=== PATIENT | male | born 1935 | race Caucasian/White ===

== ENCOUNTER 2019-07-16 19:28 | Inpatient (IN) | payer MEDICARE, OTHER, SELFPAY ==
[2019-07-16] VITALS (8 sets, daily range): BP systolic 92–152; BP diastolic 46–56; PULSE 57–78; RESP 17–19; TEMP 37.7–39.4; O2SAT 93–95; BMI 25.8
[2019-07-16] MEDS: Ibuprofen 400 MG Tablet 800 MG PO (20:26)
--- NOTE | 2019-07-16 20:46 | RAD_ITS ---
STUDY: X-RAY CHEST REASON FOR EXAM: Male, 84 years old. fever and cough since wednesday TECHNIQUE: Single AP portable view of the chest. COMPARISON: FINDINGS: The lungs are clear and expanded. Elevated right hemidiaphragm. Normal size heart. Normal mediastinum and leda. Normal visualized pulmonary arteries. Normal visualized aortic arch and descending thoracic aorta. Normal visualized thoracic spine. Normal visualized ribs, clavicles, and shoulders. There is no demonstrated abnormality of the visualized soft tissue structures of the upper abdomen. RAD/Chest 1 View (Portable) IMPRESSION: No active disease. Elevated right hemidiaphragm. Electronically Signed: Alexis Huang MD at 21:25 EDT Tel , Service support ,
[2019-07-16 20:48] LABS: Absolute Lymphocyte Count 0.69 X10^3/uL (0.83-4.51); Absolute Neutrophil Count 5.9 X10^3/uL (2.0-7.7); Basophil# 0.07 X10^3/uL; Basophil% 0.9 % (0-1); Eosinophil# 0.01 X10^3/uL; Eosinophils% 0.1 % (0-5); Hematocrit 38.9 % (40-54); Lymphocyte # 0.69 X10^3/ul (4.0); Lymphocyte % 9.1 % (19-41); Mean Corp Hgb Conc 33.4 g/dL (32-36); Mean Corpuscular Hgb 29.1 pg (27.0-32.0); Mean Corpuscular Volume 87.2 fL (80-94); Monocyte% 11.9 % (0-10); NRBC Flagged by Analyzer 0 % (0-5); Neutrophil # 5.85 X10^3/uL (2.7-7.7); Neutrophil % 77.5 % (47-70); Platelet Count 291 K/mm3 (150-450); RBC Distribution Width CV 13.7 % (11.6-14.6); RBC Distribution Width SD 44.2 fl (35.1-43.9); Red Blood Count 4.46 M/mm3 (4.6-6.2); White Blood Count 7.6 K/mm3 (4.4-11.0)
--- NOTE | 2019-07-16 20:51 | ED.DCSUM_ITS ---
History of Present Illness Chief Complaint: Shortness of Breath Informant: Patient, Significant Other Narrative: Patient states that on Wednesday he developed a dry cough. Did not really have any other symptoms until yesterday late when he developed a fever and some mild shortness of breath today. He denies any headache. He notes generalized myalgias. He states his nose chronically has rhinorrhea but that is unchanged. He notes some nausea and decreased appetite. He notes his urine is darker than normal. No rashes. No sputum production. Patient has had some diarrhea. 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 Past Medical History - Allergies and Home Meds Allergies/Adverse Reactions: Allergies Iodinated Contrast Media [CONTRASTS] Allergy (Verified 07/16/19 19:29) Rash Primary Care Physician: Ran Bird MD [Primary Care Provider] - Smoking Status: Never smoker - Family History Maternal Family History: Reports: Diabetes, High Cholesterol, Heart Disease, Hypertension Paternal Family History: Reports: Diabetes, High Cholesterol, Heart Disease, Hypertension Review of Systems General: Reports: Chills, Fever, Malaise. Denies: Sweats Eyes: Denies: Visual changes - bilaterally, Diplopia ENT: Denies: Rhinorrhea, Sore throat Cardiovascular: Denies: Chest pain, Palpitations Respiratory: Reports: Dyspnea, Cough. Denies: Dyspnea on exertion Gastrointestinal: Denies: Abdominal pain, Nausea, Vomiting, Diarrhea, Melena, Hematochezia Genitourinary: Denies: Dysuria, Hematuria, Frequency Musculoskeletal: Reports: Myalgias. Denies: Back pain, Extremity Pain Skin: Denies: Rash, Wounds Neurological: Denies: Headache, Weakness, Numbness Physical Exam Vital Signs/Narrative: Vital Signs Temp Pulse Resp BP Pulse Ox 07/16/19 20:28 102.9 F H 73 19 H 111/55 L 94 07/16/19 19:30 102.9 F H 69 17 152/56 H 94 Inital Vital Signs reviewed: Yes General: Well nourished, Well developed, No Acute Distress Head: Normocephalic, Atraumatic Eyes: Perrl, EOMI ENT: Moist mucous membranes, No rhinorrhea Neck: Supple, Nontender Cardiovascular: Regular rate, Regular rhythm, No murmurs Respiratory: No distress, CTA bilaterally, Chest nontender Abdomen: Soft, Nontender, Nondistended, Normal bowel sounds Back: Nontender, Normal Inspection Extremities: Nontender, No edema Skin: Normal color, No rash Neurological: Alert, Oriented x3, Cranial nerves II-XII grossly intact, Normal Strength, Normal Sensation Psychological: Normal affect, Normal Mood Diagnostic/Tx/Re-eval - Medical Decision Making Basic labs show a normal white blood cell count with a shift. Creatinine is 1.72. Lactic acid is normal. Coags normal. Chest x-ray negative. Influenza swab was negative therefore respiratory panel was ordered. As his fever came down his blood pressure has been soft. We have had numerous blood pressure readings below the mean of 65 but also some above it. Because of the labile pressures we will plan to put the patient in the ICU for close observation. We do have concerns for COVID. Because he is asplenic without a clear source for his fever we administered vancomycin and Rocephin. Cultures were obtained. He also sent stool specimen because of the diarrhea. - Critical Care Time Critical care time (excluding procedures): 30-74 minutes - 35 min ED Disposition - Plan for ED Patient: Disposition: Acute Care Hospital [facility] Diagnosis: Diarrhea, Sepsis, Sepsis associated hypotension, Acute viral syndrome Referrals: Ran Bird MD [Primary Care Provider] -
[2019-07-16 21:02] LABS: International Normalized Ratio 1.2; Prothrombin Time (Protime)PT. 14.5 SECONDS (11.7-14.9)
[2019-07-16] MEDS: Acetaminophen 500 MG Tablet 1000 MG PO (21:02)
[2019-07-16] MEDS: 0.9% Normal Saline 1,000 ML 999 ML IV ×2 (21:02→22:20)
[2019-07-16 21:03] LABS: Partial Thromboplast Time 28.1 Seconds (24.1-36.2)
[2019-07-16] MEDS: 0.9% Normal Saline 1,000 ML 150 ML IV (21:03)
[2019-07-16 21:07] LABS: BUN 34 mg/dL (7-18); Creatinine, Serum 1.72 mg/dL (0.70-1.30); Estimated Creatinine Clearance 33.11 ml/min; Glucose 104 mg/dL (74-106)
[2019-07-16 21:08] LABS: ALB/GLOB Ratio 1.1 RATIO (0.9-2.4); AST(SGOT) 21 U/L (15-37); Alanine Aminotransfer ALT/SGPT 22 U/L (16-61); Albumin, Serum 3.6 g/dL (3.2-5.0); Alkaline Phosphatase 44 U/L (45-117); Anion Gap 9 (5-15); BUN/Creat Ratio 19.8 RATIO (10-20); Calcium,Total 8.3 mg/dL (8.5-10.1); Chloride 100 mmol/L (98-107); EST Glomerular Filtration Rate 41 mL/min (>60); Est Glom Filt Rate - Afr Amer 49 mL/min (>60); Globulin 3.3 g/dL (2.2-4.2); Protein, Total 6.9 g/dL (6.4-8.2); Sodium Level 134 mmol/L (136-145)
[2019-07-16 21:19] LABS: Lactic Acid 0.9 mmol/L (0.4-1.9)
--- NOTE | 2019-07-16 21:43 | HP.PCM_ITS ---
Problem List (1) Sepsis Status: Acute Qualifiers: Sepsis type: sepsis due to unspecified organism Sepsis acute organ dysfunction status: unspecified Qualified Code(s): A41.9 - Sepsis, unspecified organism (2) Sepsis associated hypotension Status: Acute (3) Acute viral syndrome Status: Acute (4) HTN (hypertension) Status: Chronic Qualifiers: Hypertension type: essential hypertension Qualified Code(s): I10 - Essential (primary) hypertension (5) HLD (hyperlipidemia) Status: Chronic Qualifiers: Hyperlipidemia type: unspecified Qualified Code(s): E78.5 - Hyperlipidemia, unspecified (6) Former tobacco use Status: Chronic (7) History of kidney cancer Status: Chronic History of Present Illness Date of Admission: 07/16/19 Chief Complaint: Dyspnea, fever x 3 days The patient is a 84 y/o M w/ PMHx: Hx Metastatic Renal CA s/p partial pancreatomy/bowel resection/L nephrectomy/splenectomy, HTN, HLD, CKD stage III (baseline 1.3-1.5) who presents to the [facility] ED on 07/16/19 with history of 3 days of worsening mild dry cough, dyspnea, worse with exertion with onset fever x 24 hours with myalgia with no headache, congestion or rhinorrhea prompting ED presentation with noted recent anorexia with poor oral intake with loose stools and mild abdominal cramping starting on day of ED presentation concurrently. Patient denies any recent travel and no specific exposure to COVID-19 patient.; however, patient and who is present and has mask in place note that they were both recently at several volleyball tournaments in the region including [place], [place] and [place]. Work-up in the ED included T 102.9, heart rate 69, BP 152/59, respiratory rate 19, 94% on room air, CBC with WC 7.6, hemoglobin 13, platelet 291 without significant left shift, unremarkable coags, CMP with sodium 134, BUN/creatinine 34/1.72, lactic acid 0.9, troponin less than 0.015, chest x-ray with no acute cardiopulmonary findings with only noted elevated right hemidiaphragm, blood culture x2 pending per ED, negative rapid in fluenza panel. In the ED patient ministered normal saline, Tylenol, ibuprofen. Pending respiratory viral panel per ED physician. Given asplenic status per discussion with ED physician and low BPs, planned administration rocephin, vanc and continued BP monitoring and if improved planned PCU transition but if worsening hypotension would transition to the ICU. Past Medical History Past Medical History (Chronic Problems): Chronic Problems HTN (hypertension) (Chronic) HLD (hyperlipidemia) (Chronic) Former tobacco use (Chronic) History of kidney cancer (Chronic) Allergies Iodinated Contrast Media [CONTRASTS] Allergy (Verified 07/16/19 19:29) Rash Home Medications: Ambulatory Orders Medication Instructions Recorded Aspirin E.C. 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 Psychiatric History: No pertinent psych hx Lives: Spouse/ Significant Other Smoking Status: Former smoker - Patient quit cigarette tobacco usage in 1979 with prior this 1.5 to 2 pack/day since he was a teenager. Tobacco Use: Non-smoker Alcohol: None Drugs: None - *Family History Maternal History Items: Diabetes, High Cholesterol, Heart Disease, Hypertension Paternal History Items: Diabetes, High Cholesterol, Heart Disease, Hypertension Review of Systems Constitutional: Reports: Anorexia, Fever, Malaise, Weakness, Fatigue. Denies: Chills, Weight Change HEENT: Denies: Head Aches, Sinus Congestion, Sinus Drainage Cardiovascular: Denies: Chest Pain, Palpitations Respiratory: Reports: Cough, Shortness of Breath, Shortness of breath at rest, Shortness of breath upon exertion. Denies: Sputum production, Wheezing Gastrointestinal: Reports: Abdominal Pain, Diarrhea. Denies: Nausea, Vomiting Genitourinary: Denies: Dysuria Musculoskeletal: Reports: Joint Pain. Denies: Joint Tenderness Skin: Denies: Rash, Wounds Neurological: Denies: Numbness, Tingling, Focal weakness Psychiatric: Denies: Anxiety, Depression, Homicidal Ideations, Suicidal Ideations Hematologic/ Lymphatic: Denies: Easy Bruising, Easy Bleeding VTE Information - Inpt Only VTE Present on Admission: No VTE Mechan Device Prophylaxis: SCD's VTE Pharm Prophylaxis ordered?: Yes Patient Problems: Active and Suspected Problems Sepsis (Acute) Sepsis associated hypotension (Acute) Acute viral syndrome (Acute) Subjective: Seated upright in ED bed, fatigued and ill-appearing. Objective: Physical Examination: General: awake, alert, oriented x 3 and cooperative, seated upright in the ED bed, fatigued and ill-appearing. Skin: normal color, turgor, no icterus, cyanosis. HEENT: AT/NC, EOMI, PERRLA, dry MM, no carotid bruits or JVD noted. Lungs: Diminished breath sounds bilaterally, greater right base, mildly increased respiratory rate, no obvious significant distress, no rales, ronchi or wheezing. Heart: Regular rate and rhythm; no gallop, rub audible. Abdomen: soft, NTTP, ND, hyperactive BS, no HSM. Extremities: no cyanosis, clubbing, or edema. Neurological: patient awake, alert, oriented x 3; cognitive function remains baseline intact; pupils equally reactive to light and accomodation; cranial nerves II-XII grossly normal, moving all 4 extremities, no focal deficits, strength moderately global decrease secondary to acute presentation. Psychiatric: affect appears n fatigued, ill-appearing, no acute evidence of depressive or anxiety feelings. - Physical Exam Vitals/I&O's: Vital Signs Temp Pulse Resp BP Pulse Ox 102.8 F H 73 19 H 111/55 L 94 07/16/19 20:37 07/16/19 20:28 07/16/19 20:28 07/16/19 20:28 07/16/19 20:28 Oxygen Delivery Method Room Air Weight: 175 lb Body Mass Index (BMI) 25.8 Intake and Output for Last 24 Hours 07/14/19 07/15/19 07/16/19 23:59 23:59 23:59 Intake Total 22.5 / 22.5 Balance 22.5 / 22.5 Microbiology Past 72 Hours 07/16/19 20:45 Mucosa - Nose Influenza Types A,B Direct FA (FUAD) - Final Laboratory Results 07/16/19 20:20: Sodium 134 L, Potassium 4.0, Chloride 100, Carbon Dioxide 25.0, Anion Gap 9, BUN 34 H, Creatinine 1.72 H, Estim Creat Clear Calc 33.11, Est GFR (MDRD) Af Amer 49 L, Est GFR (MDRD) Non-Af 41 L, BUN/Creatinine Ratio 19.8, Glucose 104, Calcium 8.3 L, Total Bilirubin 0.50, AST 21, ALT 22, Alkaline Phosphatase 44 L, Troponin I < 0.015, Total Protein 6.9, Albumin 3.6, Globulin 3.3, Albumin/Globulin Ratio 1.1 07/16/19 20:20: WBC 7.6, RBC 4.46 L, Hgb 13.0, Hct 38.9 L, MCV 87.2, MCH 29.1, MCHC 33.4, RDW Std Deviation 44.2 H, RDW Coeff of Ernesto 13.7, Plt Count 291, MPV 10.0, Immature Gran % (Auto) 0.500, Neut % (Auto) 77.5 H, Lymph % (Auto) 9.1 L, [place] % (Auto) 11.9 H, Eos % (Auto) 0.1, Baso % (Auto) 0.9, Absolute Neuts (auto) 5.9, Absolute Lymphs (auto) 0.69 L, Nucleated RBC % 0 07/16/19 20:20: PT 14.5, INR 1.2, APTT 28.1 07/16/19 20:20: Lactic Acid 0.9 Current Medications Sodium Chloride () 1,000 mls @ 150 mls/hr IV .[id number] [facility] Last Infusion: 07/16/19 21:12 Dose: 0 mls/hr Documented by: Ibuprofen (Motrin) 800 mg PO TAKE HOME MED [facility] Last Admin: 07/16/19 20:26 Dose: 800 mg Documented by: Assessment/Plan All Active Problems Sepsis (Acute) Sepsis associated hypotension (Acute) Acute viral syndrome (Acute) The patient is a 84 y/o M w/ PMHx: Hx Metastatic Renal CA s/p partial pancreatomy/bowel resection/L nephrectomy/splenectomy, HTN, HLD, CKD stage III (baseline 1.3-1.5) who presents to the [facility] ED on 07/16/19 with history of 3 days of worsening mild dry cough, dyspnea, worse with exertion with onset fever x 24 hours with myalgia with no headache, congestion or rhinorrhea prompting ED presentation with noted recent anorexia with poor oral intake with loose stools and mild abdominal cramping starting on day of ED presentation concurrently. 1. Acute Sepsis with Hypotension (MAP still remains > 65) secondary to Acute Viral Syndrome (Febrile, Cough, Diarrhea), Possible COVID-19: Work-up in the ED included T 102.9, heart rate 69, BP 152/59, respiratory rate 19, 94% on room air, CBC with WC 7.6, hemoglobin 13, platelet 291 without significant left shift, unremarkable coags, CMP with sodium 134, BUN/creatinine 34/1.72, lactic acid 0.9, troponin less than 0.015, chest x-ray with no acute cardiopulmonary findings with only noted elevated right hemidiaphragm, blood culture x2 pending per ED, negative rapid influenza panel. Awaiting repeat BP assessments in the ED for ICU versus PCU admission, will maintain on IV rocephin and vanc given asplenic history, pending respiratory viral panel and if negative will request COVD-19, plan repeat AM CXR to assure no developing infiltrate, plan to obtain stool culture/cdiff given recent onset concurrent loose stools, maintain on oxygen with wean as tolerated to room air, continue ATC duonebs, PRN albuterol, HOB, IS parameters. If viral etiology noted on respiratory panel will remove aggressive precautions and would de-escalate of abx therapy pending repeat CXR. Bld cx x 2 obtained in the ED. 2. Hx Metastatic Renal CA: Patient per report s/p partial pancreatomy/bowel resection/L nephrectomy/splenectomy, as noted to be cautious given fever with likely viral syndrome but pending respiratory viral panel and if negative plan to continue with Coban 19 testing with repeat chest x-ray in a.m. continue on IV Rocephin and vancomycin given a splenic presentation. 3. Hypertension: Given hypotensive presentation in the ED, improving with IV fluids however to be cautious awaiting repeat to assess ICU versus PCU transition, holding BP regimen, add back once appropriate. 4. Hyperlipidemia: Continue home statin regimen. 5. Chronic Kidney Disease Stage III: Admission BUN/Cr 34/1.72, baseline renal function 0.3-1.5, not far from baseline but likely mild increase secondary to poor oral intake and mild dehydration, repeat BMP in AM. 6. DVT prophylaxis: SCDs, Lovenox renally dosed. 7. CODE status: Patient ANDRÉS is his who is present and living will is currently in place. Discussed CODE status at length including difference between FULL code, DNR-CCA and DNR-CC status. Following discussions about the differences in these status, requested full CODE STATUS. Advanced Care Planning Face to Face Time: 16 minutes. Inpatient E&M: 55832 Init Hosp L3 Procedures: 68928 Advncd Care Plan 30 Min
[2019-07-16 21:51] LABS: Bacteria 0 SEEN /hpf (None Seen); Mucous, Urine 0 SEEN /hpf (<or=2+); Red Blood Cells-Urine 0 SEEN /hpf (0-5); Squamous Epithelial Cells - UA 0 SEEN /hpf (0-5)
[2019-07-16 21:52] LABS: Color, Urine Yellow (Yellow); Glucose, Dipstick Normal (Normal); Ketone-Dipstick Negative (Negative); Leukocyte Esterase-Dipstick 25 /ul (Negative); Nitrite-Dipstick Negative (Negative); Occult Blood-Urine 10 /ul (Negative); Protein-Dipstick 15 mg/dl (Negative); Urine Bilirubin Dipstick Negative (Negative); Urine Clarity Sl. Cloudy (Clear); Urine Urobilinogen Normal (Normal)
[2019-07-16 22:01] LABS: White Blood Cells 0-5 SEEN /hpf (0-5)
[2019-07-16] MEDS: Ceftriaxone 1 GM/50 ML BAG IV (22:37)
[2019-07-17] VITALS (37 sets, daily range): BP systolic 76–126; BP diastolic 42–82; PULSE 39–73; RESP 12–21; TEMP 36.7–38.2; O2SAT 93–100; BMI 28.3; BMI 28.4
--- NOTE | 2019-07-17 00:38 | ED.RN ---
REPORT GIVEN TO ANNETTE MUSE IN ICU.
[2019-07-17 01:17] LABS: Magnesium 1.5 mg/dL (1.6-2.6)
--- NOTE | 2019-07-17 01:24 | PCM.RX.CS ---
Consult Pharmacy has been consulted to manage selected antiobiotic: Vancomycin Type of Consult: New start Suspected Infection: Sepsis Labs: Sodium 134 mmol/L (136-145) L 07/16/19 20:20 Potassium 4.0 mmol/L (3.5-5.1) 07/16/19 20:20 Chloride 100 mmol/L (98-107) 07/16/19 20:20 Carbon Dioxide 25.0 mmol/L (21.0-32.0) 07/16/19 20:20 Anion Gap 9 (5-15) 07/16/19 20:20 BUN 34 mg/dL (7-18) H 07/16/19 20:20 Creatinine 1.72 mg/dL (0.70-1.30) H 07/16/19 20:20 Est GFR (MDRD) Af Amer 49 mL/min (>60) L 07/16/19 20:20 Est GFR (MDRD) Non-Af 41 mL/min (>60) L 07/16/19 20:20 BUN/Creatinine Ratio 19.8 RATIO (10-20) 07/16/19 20:20 Glucose 104 mg/dL (74-106) 07/16/19 20:20 Microbiology: Microbiology 07/16/19 21:40 Mucosa - Nasopharyngeal Respiratory Panel (PCR) - Preliminary Influenza A (Subtype H1) 07/16/19 20:45 Mucosa - Nose Influenza Types A,B Direct FA (FUAD) - Final Weight used for dosin.2 kg Estimated Creatinine Clearance: 36.2 Goal Trough: 10-15 mcg/mL Pharmacy Plan for Drug Dosing: Pharmacy Service will continue to monitor and adjust dosing as required. Medications Vancomycin HCl (Vancomycin) 1,000 mg in 200 mls @ 200 mls/hr IV Q24H JENNIFER Discontinued Medications Vancomycin HCl 2,000 mg/ (Sodium Chloride) 540 mls @ 250 mls/hr IV X1 ONE Stop: 07/17/19 00:39 Last Admin: 07/16/19 23:19 Dose: 250 mls/hr Documented by: Follow-Up Labs: Trough Vancomycin Labs to be done on [date and time ordered]: 07/17 @ 3039
[2019-07-17] MEDS: Oseltamivir Phosphate 30 MG Capsule PO ×3 (01:36→20:40)
[2019-07-17] MEDS: 0.9% Normal Saline 1,000 ML 125 ML IV ×3 (01:36→19:49)
[2019-07-17] MEDS: Ipratropium/Albuterol Sulfate 3 ML AMPUL.NEB INHALATION ×5 (02:48→18:48)
[2019-07-17 04:08] LABS: Absolute Lymphocyte Count 1.84 X10^3/uL (0.83-4.51); Absolute Neutrophil Count 2.9 X10^3/uL (2.0-7.7); Basophil# 0.04 X10^3/uL; Basophil% 0.7 % (0-1); Eosinophils% 1.8 % (0-5); Hematocrit 37.7 % (40-54); Hemoglobin 12.1 g/dL (13.0-16.5); Lymphocyte # 1.84 X10^3/ul (4.0); Lymphocyte % 32.4 % (19-41); Mean Corp Hgb Conc 32.1 g/dL (32-36); Mean Corpuscular Hgb 28.7 pg (27.0-32.0); Mean Corpuscular Volume 89.5 fL (80-94); Mean Platelet Vol. 9.8 fl (6.2-12.0); Monocyte# 0.77 X10^3/uL; Monocyte% 13.6 % (0-10); NRBC Flagged by Analyzer 0 % (0-5); Platelet Count 260 K/mm3 (150-450); RBC Distribution Width SD 45.8 fl (35.1-43.9); Red Blood Count 4.21 M/mm3 (4.6-6.2); White Blood Count 5.7 K/mm3 (4.4-11.0)
[2019-07-17 04:26] LABS: AST(SGOT) 22 U/L (15-37); Alanine Aminotransfer ALT/SGPT 20 U/L (16-61); Albumin, Serum 3.1 g/dL (3.2-5.0); Alkaline Phosphatase 40 U/L (45-117); Anion Gap 8 (5-15); BUN 37 mg/dL (7-18); BUN/Creat Ratio 20.1 RATIO (10-20); Calcium,Total 7.2 mg/dL (8.5-10.1); Chloride 106 mmol/L (98-107); Creatinine, Serum 1.84 mg/dL (0.70-1.30); EST Glomerular Filtration Rate 38 mL/min (>60); Est Glom Filt Rate - Afr Amer 46 mL/min (>60); Estimated Creatinine Clearance 30.95 ml/min; Glucose 101 mg/dL (74-106); Protein, Total 6.1 g/dL (6.4-8.2); Sodium Level 137 mmol/L (136-145)
--- NOTE | 2019-07-17 05:45 | RAD_ITS ---
HISTORY: Dyspnea EXAMINATION/TECHNIQUE: XR Chest 1 View: portable COMPARISON: 07/16/2019 FINDINGS: Cardiac telemetry leads in place. No significant change. Chronic mild elevation of the right hemidiaphragm. The heart is upper normal in size. Left hilar calcified lymph nodes. No acute infiltrate. No vascular congestion or definite pleural effusion. No pneumothorax. Atherosclerotic thoracic aorta. RAD/Chest 1 View (Portable) IMPRESSION: No acute cardiopulmonary disease. No significant interval change. at 0716 Reported and signed by: Malcom Joyner MD Electronically Signed: Malcom Joyner, at 7:15 EDT Tel , Service support ,
--- NOTE | 2019-07-17 06:25 | ECHOCS_ITS ---
Reason For Study: PHTN Procedure This was a 2D Doppler, Color Flow transthoracic echocardiogram. The study was technically difficult. Contrast injection was performed. Exam performed portable in ICU/CCU. Left Ventricle Normal LV size. Left ventricular systolic function is normal. The estimated ejection fraction is 65 %. Stage 2 diastolic dysfunction. No regional wall motion abnormalities noted. Right Ventricle Normal RV size. Normal systolic function. Atria The left atrium is mildly enlarged. Normal right atrium. Mitral Valve Normal mitral valve. Tricuspid Valve Normal tricuspid valve. Mild (1+) tricuspid valve insufficiency. Pulmonary artery systolic pressure is 35 mmHg. Aortic Valve The aortic valve is not well visualized. Pulmonic Valve Normal pulmonic valve. Great Vessels Normal aortic root. The pulmonary artery is normal size. Normal inferior vena cava. Pericardium/Pleural No pericardial effusion. Medication Diluted definity 2.0ml given slow IV push to enhance endocardial definition. MMode/2D Measurements & Calculations LVIDd: 4.6 cm IVSd: 0.88 cm LVOT diam: 2.0 cm LVIDs: 3.1 cm LVPWd: 0.92 cm RVDd: 3.6 cm FS: 32.0 % LVOT area: 3.2 cm2 Ao root diam: 3.6 cm LAV(MOD-bp): 61.8 ml LVAd ap4: 32.6 cm2 LAV(MOD-bp) Indexed: 30.4 ml/m2 EDV(MOD-sp4): 105.2 ml LAV(MOD-sp2): 60.7 ml EDV(sp4-el): 111.9 ml LAV(MOD-sp4): 64.2 ml LVAs ap4: 14.1 cm2 ESV(MOD-sp4): 27.9 ml ESV(sp4-el): 29.3 ml EF(MOD-sp4): 73.5 % EF(sp4-el): 73.8 % SV(MOD-sp4): 77.3 ml SV(sp4-el): 82.6 ml LA A4 area: 21.5 cm2 LA dimension(2D): 4.4 cm RA A4 area: 14.4 cm2 Time Measurements MV dec time: 0.13 sec Doppler Measurements & Calculations MV E max darrion: 99.0 cm/sec Lat Peak E' Darrion: 8.9 cm/sec Med Peak E' Darrion: 8.5 cm/sec MV A max darrion: 53.7 cm/sec E/E' lat: 11.1 E/E' med: 11.7 MV E/A: 1.8 Ao V2 max: 192.3 cm/sec LV V1 max: 126.0 cm/sec SV(LVOT): 103.7 ml Ao max P.8 mmHg LV V1 max P.4 mmHg Ao V2 mean: 136.3 cm/sec LV V1 mean P.4 mmHg Ao mean P.1 mmHg LV V1 mean: 89.1 cm/sec Ao V2 VTI: 47.0 cm LV V1 VTI: 32.8 cm RITIKA(I,D): 2.2 cm2 RITIKA(V,D): 2.1 cm2 PA V2 max: 96.1 cm/sec TR max darrion: 265.5 cm/sec TR max P.2 mmHg Interpretation Summary Normal LV size. Left ventricular systolic function is normal. The estimated ejection fraction is 65 %. Stage 2 diastolic dysfunction. The left atrium is mildly enlarged. Pulmonary artery systolic pressure is 35 mmHg. Ordering Physician: aPul [place] Referring Physician: SHIMA AJ Performed By: Drea Juárez, TESSY, RVT
--- NOTE | 2019-07-17 07:54 | PCM.CON.CC ---
Problem List (1) Influenza A Status: Acute (2) Sepsis associated hypotension Status: Acute (3) HTN (hypertension) Status: Chronic Qualifiers: Hypertension type: essential hypertension Qualified Code(s): I10 - Essential (primary) hypertension (4) HLD (hyperlipidemia) Status: Chronic Qualifiers: Hyperlipidemia type: unspecified Qualified Code(s): E78.5 - Hyperlipidemia, unspecified (5) Former tobacco use Status: Chronic (6) History of kidney cancer Status: Chronic Reason for Consult Date of Consultation: 07/17/19 Reason for Consultation: Sepsis History of Present Illness: The patient is an 84 year old M, with past medical history listed below, who presented to [facility] on 07/16/2019 secondary to a 48-hour onset of a dry cough. Patient stated that he developed a fever and some mild shortness of breath on the day of presentation. Patient had denied any headache, but had noted generalized myalgias. Patient does have chronic rhinorrhea, but does not believe this is significantly changed. Patient has had some nausea and decreased appetite and had noted that his urine was darker than normal. No rashes or sputum production has been reported. Patient has had some diarrhea, but denied any melena or hematochezia. 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 In the ER, patient was noted to be febrile at 102.9 ?F with a blood pressure of 152/56. Patient did have an elevated creatinine of 1.72, but lactate was normal. Chest x-ray was unimpressive influenza swab was reportedly negative, but viral swab was positive for influenza A. Blood pressures had noted to be marginal, so patient was admitted to the intensive care unit for further evaluation. There was some concerns for COVID-19. Patient was placed on vancomycin and Rocephin secondary to asplenia. Patient also had a C. difficile sent that was negative. Since being in the intensive care unit, patient has persisted in bradycardia. Blood pressures have been marginal, but no boluses have been required. Patient is tolerating room air at this time. Patient denies any history of respiratory issues in the past. Patient has never had a diagnosis of COPD or asthma. No PFTs have been obtained. Patient denies any recent travel or exposures. Patient is retired. Patient has not been on any cruises or travel to any conferences. Patient has been traveling to several volleyball tournaments in the area. Patient states that he is currently on Cialis secondary to his prostate. Patient states that he takes this daily. Patient is unaware of any diagnosis of pulmonary hypertension. Review of systems otherwise negative from a constitutional, HEENT, respiratory, cardiovascular, GI, genitourinary, musculoskeletal, skin, neurologic, psychiatric and hematologic system unless stated above. Past Medical History Past Medical History (Chronic Problems): Chronic Problems HTN (hypertension) (Chronic) HLD (hyperlipidemia) (Chronic) Former tobacco use (Chronic) History of kidney cancer (Chronic) Allergies Iodinated Contrast Media [CONTRASTS] Allergy (Verified 07/16/19 19:29) Rash Home Medications: Ambulatory Orders Medication Instructions Recorded Aspirin E.C. 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 Psychiatric History: No pertinent psych hx Lives: Spouse/ Significant Other Smoking Status: Former smoker Tobacco Use: Non-smoker Alcohol: None Drugs: None - *Family History Maternal History Items: Diabetes, High Cholesterol, Heart Disease, Hypertension Paternal History Items: Diabetes, High Cholesterol, Heart Disease, Hypertension Review of Systems Comment: See HPI Patient Problems: Active and Suspected Problems Sepsis (Acute) Sepsis associated hypotension (Acute) Acute viral syndrome (Acute) Diarrhea (Acute) Influenza A (Acute) Objective: Chest x-ray was personally reviewed and did not appear to show any acute infiltrates. Patient has not had an echocardiogram in our system. Patient is unaware of any previous echocardiogram. - Physical Exam Vitals/I&O's: Vital Signs Temp Pulse Resp BP Pulse Ox 37.1 C 45 L 16 109/44 L 98 03/16/20 04:00 07/17/19 07:00 07/17/19 07:00 07/17/19 07:00 07/17/19 07:00 Oxygen Flow Rate (L/min) 2 Oxygen Delivery Method Room Air Weight: 87.2 kg Body Mass Index (BMI) 28.3 Intake and Output for Last 24 Hours 07/15/19 07/16/19 07/17/19 23:59 23:59 23:59 Intake Total 1072.5 / 1072.5 1814 Balance 1072.5 / 1072.5 1814 General: Alert, Oriented x3, Cooperative, No apparent distress, - - No conversational dyspnea. Dry cough noted. HEENT: Atraumatic, PERRLA, EOMI, Normocephalic, - - No scleral icterus or injection noted Oral: No Gingival or Mucosal Lesions/ Ulcerations, Dry Mucosa Neck: Supple, No JVD, No Nodes, Trachea Midline Lungs: No rhonchi, No rales, Diminished, Wheezes - At end exhalation Cardiovascular: Normal S1, Normal S2, No murmurs, Bradycardic - Sinus bradycardia on telemetry, No rub noted, No Gallop Abdomen: Bowel Sounds Present, Soft, Non Tender, Non-Distended, Obese Extremities: No clubbing, No cyanosis, No edema, Capillary Refill Less than 3 Seconds Skin: No rashes, No breakdown Musculoskeletal: No Tenderness to Palpation of Joints or Extremities Lymphatic: No Cervical, Supraclavicular, or Inguinal Adenopathy Neurological: Cranial nerves II-XII grossly intact, Neuro grossly intact, Motor Exam 5/5 strength throughout Psych/Mental Status: Alert and oriented to time, place, person, mood and affect Microbiology Past 72 Hours 07/16/19 21:40 Mucosa - Nasopharyngeal Respiratory Panel (PCR) - Final Influenza A (Subtype H1) 07/16/19 23:28 Stool C. difficile DNA Amplification - Final 07/16/19 20:45 Mucosa - Nose Influenza Types A,B Direct FA (FUAD) - Final Laboratory Results 07/16/19 20:20: Sodium 134 L, Potassium 4.0, Chloride 100, Carbon Dioxide 25.0, Anion Gap 9, BUN 34 H, Creatinine 1.72 H, Estim Creat Clear Calc 33.11, Est GFR (MDRD) Af Amer 49 L, Est GFR (MDRD) Non-Af 41 L, BUN/Creatinine Ratio 19.8, Glucose 104, Calcium 8.3 L, Total Bilirubin 0.50, AST 21, ALT 22, Alkaline Phosphatase 44 L, Troponin I < 0.015, Total Protein 6.9, Albumin 3.6, Globulin 3.3, Albumin/Globulin Ratio 1.1 07/16/19 20:20: WBC 7.6, RBC 4.46 L, Hgb 13.0, Hct 38.9 L, MCV 87.2, MCH 29.1, MCHC 33.4, RDW Std Deviation 44.2 H, RDW Coeff of Ernesto 13.7, Plt Count 291, MPV 10.0, Immature Gran % (Auto) 0.500, Neut % (Auto) 77.5 H, Lymph % (Auto) 9.1 L, Starr % (Auto) 11.9 H, Eos % (Auto) 0.1, Baso % (Auto) 0.9, Absolute Neuts (auto) 5.9, Absolute Lymphs (auto) 0.69 L, Nucleated RBC % 0 07/16/19 20:20: PT 14.5, INR 1.2, APTT 28.1 07/16/19 20:20: Lactic Acid 0.9 07/16/19 20:20: Magnesium 1.5 L 07/16/19 21:50: Urine Color Yellow, Urine Clarity Sl. Cloudy, Urine pH 5.0, Ur Specific [place] 1.020, Urine Protein 15 H, Urine Glucose (UA) Normal, Urine Ketones Negative, Urine Occult Blood 10 H, Urine Nitrite Negative, Urine Bilirubin Negative, Urine Urobilinogen Normal, Ur Leukocyte Esterase 25 H, Urine RBC 0 SEEN, Urine WBC 0-5 SEEN, Ur Squamous Epith Cells 0 SEEN, Urine Bacteria 0 SEEN, Urine Mucus 0 SEEN 07/17/19 03:50: WBC 5.7, RBC 4.21 L, Hgb 12.1 L, Hct 37.7 L, MCV 89.5, MCH 28.7, MCHC 32.1, RDW Std Deviation 45.8 H, RDW Coeff of Ernesto 14.0, Plt Count 260, MPV 9.8, Immature Gran % (Auto) 0.500, Neut % (Auto) 51.0, Lymph % (Auto) 32.4, Starr % (Auto) 13.6 H, Eos % (Auto) 1.8, Baso % (Auto) 0.7, Absolute Neuts (auto) 2.9, Absolute Lymphs (auto) 1.84, Nucleated RBC % 0 07/17/19 03:50: Sodium 137, Potassium 4.0, Chloride 106, Carbon Dioxide 23.0, Anion Gap 8, BUN 37 H, Creatinine 1.84 H, Estim Creat Clear Calc 30.95, Est GFR (MDRD) Af Amer 46 L, Est GFR (MDRD) Non-Af 38 L, BUN/Creatinine Ratio 20.1 H, Glucose 101, Calcium 7.2 L, Total Bilirubin 0.30, AST 22, ALT 20, Alkaline Phosphatase 40 L, Total Protein 6.1 L, Albumin 3.1 L, Globulin 3.0, Albumin/Globulin Ratio 1.0 Current Medications Acetaminophen (Tylenol) 650 mg PO Q6H PRN PRN PRN Reason: Pain Score 1-10/Temp > 100.7 F Al Hydroxide/Mg Hydroxide (Mylanta Ii) 30 ml PO Q6H PRN PRN PRN Reason: Gastric Burning Albuterol Sulfate (Ventolin Aerosols) 2.5 mg INHALATION Q2H PRN PRN PRN Reason: dyspnea, wheezing Albuterol/Ipratropium (Duoneb) 3 ml INHALATION Q4HWA.RT [facility] Last Admin: 07/17/19 06:29 Dose: 3 ml Documented by: Aspirin (Ecotrin) 81 mg PO DAILY@0800 [facility] Atorvastatin Calcium (Lipitor) 20 mg PO QHS [facility] Enoxaparin Sodium (Lovenox) 40 mg SC DAILY [facility] Glucagon () 1 mg IM .X1 PRN PRN Reason: Hypoglycemia Guaifenesin (Robitussin) 20 ml PO Q4H PRN PRN PRN Reason: COUGH Hydralazine HCl (Apresoline Iv) 10 mg IV Q4H PRN PRN PRN Reason: SBP > 160 Sodium Chloride () 1,000 mls @ 125 mls/hr IV .Q8H [facility] Last Admin: 07/17/19 01:36 Dose: 125 mls/hr Documented by: Ceftriaxone Sodium (Rocephin) 1 gm in 50 mls @ 100 mls/hr IV Q24H [facility] Vancomycin IV Pharmacy to Dose (1 ea/ Sodium Chloride) 500 mls @ 250 mls/hr IV X1 PRN; Protocol PRN Reason: Rx to Dose Dextrose (Dextrose 10%-Water) 250 mls @ 999 mls/hr IV .Q16M PRN; Protocol PRN Reason: HYPOGLYCEMIA Sodium Chloride () 250 mls @ 15 mls/hr IV .[id number] PRN PRN Reason: Saline Flush Sodium Chloride () 250 mls @ 15 mls/hr IV .[id number] PRN PRN Reason: Additional IVPB Infusion Vancomycin HCl (Vancomycin) 1,000 mg in 200 mls @ 200 mls/hr IV Q24H [facility] Ibuprofen (Motrin) 800 mg PO TAKE HOME MED [facility] Last Admin: 07/16/19 20:26 Dose: 800 mg Documented by: Magnesium Hydroxide (Milk Of Magnesia) 30 ml PO DAILY PRN PRN PRN Reason: Constipation Melatonin (Melatonin) 3 mg PO QHS PRN PRN PRN Reason: INSOMNIA Morphine Sulfate () 2 mg IV Q3H PRN PRN PRN Reason: Pain Score 6-10/10 Non-Formulary Medication (Tadalafil [Cialis]) 5 mg PO DAILY [facility] Ondansetron HCl (Zofran) 4 mg IV Q8H PRN PRN PRN Reason: NAUSEA/VOMITING Oseltamivir Phosphate (Tamiflu) 30 mg PO BID [facility] Stop: 07/21/19 10:01 Last Admin: 07/17/19 01:36 Dose: 30 mg Documented by: Oxycodone HCl (Oxyir) 5 mg PO Q4H PRN PRN PRN Reason: Pain Score 4-5/10 Prochlorperazine Edisylate (Compazine Iv) 5 mg IV Q4H PRN PRN PRN Reason: Breakthrough Nausea/Vomiting Psyllium Hydrophilic Mucilloid (Metamucil) 1 packet PO DAILY PRN PRN PRN Reason: Constipation Senna/Docusate Sodium (Senokot-S, Jodie-Colace) 2 tablet PO BID PRN PRN PRN Reason: Constipation Sodium Chloride () 10 - 40 ml IV UD PRN PRN Reason: SALINE FLUSH Throat Lozenges (Cepacol Sore Throat Lozenge) 1 lozenge MUCOUS MEM Q2H PRN PRN PRN Reason: SORE THROAT Clinical Impression(s) from Imaging Studies Chest X-Ray 07/16/19 20:46 IMPRESSION: No active disease. Elevated right hemidiaphragm. Electronically Signed: Alexis Huang MD at 21:25 EDT Tel , Service support , Chest X-Ray 07/17/19 05:45 IMPRESSION: No acute cardiopulmonary disease. No significant interval change. at 0716 Reported and signed by: Malcom Joyner MD Electronically Signed: Malcom Joyner, at 7:15 EDT Tel , Service support , Assessment/Plan Active and Suspected Problems Sepsis (Acute) Sepsis associated hypotension (Acute) Acute viral syndrome (Acute) Diarrhea (Acute) Influenza A (Acute) RECOMMENDATIONS: 1. Agree with empiric antibiotics for now until culture negative 2. Initiate Tamiflu 3. Check orthostatic blood pressures 4. If patient orthostatic, give fluid bolus, 30 cc/kg 5. Potential transfer from the intensive care unit later today pending orthostatics IMPRESSIONS: 1. Acute sepsis secondary to influenza A Patient would be at risk for COVID 19 given recent volleyball tournaments, but influenza A can also lead to this presentation. Some concern for the bradycardia and relative hypotension. Will check orthostatic blood pressures. If patient is found to be positive, 30 cc/kg bolus would be appropriate. Patient should continue on empiric antibiotics until culture is negative given history of asplenia. If blood cultures negative at 48 hours, antibiotics can likely be discontinued. Patient was C. difficile negative, but has had diarrhea and this may lead to relative volume depletion. 2. History of metastatic renal CA/chronic kidney disease stage III Patient's creatinine appears to be close to its baseline at this time. No alteration in antibiotic dosing is indicated by GFR, but pharmacy will follow. Low clinical suspicion for pulmonary embolism. Slight elevation in creatinine may be secondary to volume depletion. 3. Hypertension/hyperlipidemia/advanced age Complicates care, management, recovery and prognosis. Hold antihypertensive medications for now. Okay to give baseline statin regimen. Inpatient E&M: 47222 Init Hosp L3
--- NOTE | 2019-07-17 09:14 | PN_ITS ---
Patient Problems: Active and Suspected Problems Sepsis (Acute) Sepsis associated hypotension (Acute) Acute viral syndrome (Acute) Diarrhea (Acute) Influenza A (Acute) Subjective: Feeling a little bit better than when he came in. Fevers have resolved however his blood pressure still low and he is still bradycardic Vitals/I&O's: Vital Signs Temp Pulse Resp BP Pulse Ox 98.1 F 54 L 12 99/49 L 98 07/17/19 08:00 07/17/19 09:00 07/17/19 08:00 07/17/19 09:00 07/17/19 08:00 Oxygen Flow Rate (L/min) 2 Oxygen Delivery Method Room Air Weight: 192 lb 3.889 oz Body Mass Index (BMI) 28.3 Orthostatic Vital Signs Start: 07/17/19 09:08 Freq: q24h Status: Active Protocol: Activity Type Activity Date Activity User E-Sign Co-Sign Detail Recorded Client Recorded Date Recorded By Document 07/17/19 09:00 [facility] [id number] 07/17/19 09:12 [facility] 07/17/19 09:00 Orthostatic Vitals Standing -Blood Pressure (90/60-120/80) 97/51 L -Extremity Use Right Arm -Pulse Rate (60-100) 53 L Sitting -Blood Pressure (90/60-120/80) 103/53 L -Extremity Use Right Arm -Pulse Rate (60-100) 47 L Lying -Blood Pressure (90/60-120/80) 99/49 L -Extremity Use Right Arm -Pulse Rate (60-100) 54 L Intake and Output for Last 24 Hours 07/15/19 07/16/19 07/17/19 23:59 23:59 23:59 Intake Total 1072.5 / 1072.5 1814 Balance 1072.5 / 1072.5 1814 General: Alert, Oriented x3, Cooperative, No apparent distress HEENT: Atraumatic, PERRLA, EOMI, Normocephalic Oral: Dry Mucosa Neck: Supple, No JVD Lungs: Normal air movement, No rhonchi, No rales, Wheezes Cardiovascular: Regular Rhythm, Normal S1, Normal S2, No murmurs, - - Bradycardic Abdomen: Soft, Non Tender, Non-Distended, No Hepato-splenomegaly Extremities: No edema, Capillary Refill Less than 3 Seconds Skin: No rashes, No breakdown Neurological: Neuro grossly intact, Sensory exam intact to light touch and pain Psych/Mental Status: Normal Affect, Appropriate Microbiology Past 72 Hours 07/16/19 21:40 Mucosa - Nasopharyngeal Respiratory Panel (PCR) - Final Influenza A (Subtype H1) 07/16/19 23:28 Stool C. difficile DNA Amplification - Final 07/16/19 20:45 Mucosa - Nose Influenza Types A,B Direct FA (FUAD) - Final Laboratory Results 07/16/19 20:20: Sodium 134 L, Potassium 4.0, Chloride 100, Carbon Dioxide 25.0, Anion Gap 9, BUN 34 H, Creatinine 1.72 H, Estim Creat Clear Calc 33.11, Est GFR (MDRD) Af Amer 49 L, Est GFR (MDRD) Non-Af 41 L, BUN/Creatinine Ratio 19.8, Glucose 104, Calcium 8.3 L, Total Bilirubin 0.50, AST 21, ALT 22, Alkaline Phosphatase 44 L, Troponin I < 0.015, Total Protein 6.9, Albumin 3.6, Globulin 3.3, Albumin/Globulin Ratio 1.1 07/16/19 20:20: WBC 7.6, RBC 4.46 L, Hgb 13.0, Hct 38.9 L, MCV 87.2, MCH 29.1, MCHC 33.4, RDW Std Deviation 44.2 H, RDW Coeff of Ernesto 13.7, Plt Count 291, MPV 10.0, Immature Gran % (Auto) 0.500, Neut % (Auto) 77.5 H, Lymph % (Auto) 9.1 L, Long % (Auto) 11.9 H, Eos % (Auto) 0.1, Baso % (Auto) 0.9, Absolute Neuts (auto) 5.9, Absolute Lymphs (auto) 0.69 L, Nucleated RBC % 0 07/16/19 20:20: PT 14.5, INR 1.2, APTT 28.1 07/16/19 20:20: Lactic Acid 0.9 07/16/19 20:20: Magnesium 1.5 L 07/16/19 21:50: Urine Color Yellow, Urine Clarity Sl. Cloudy, Urine pH 5.0, Ur Specific [place] 1.020, Urine Protein 15 H, Urine Glucose (UA) Normal, Urine Ketones Negative, Urine Occult Blood 10 H, Urine Nitrite Negative, Urine Bilirubin Negative, Urine Urobilinogen Normal, Ur Leukocyte Esterase 25 H, Urine RBC 0 SEEN, Urine WBC 0-5 SEEN, Ur Squamous Epith Cells 0 SEEN, Urine Bacteria 0 SEEN, Urine Mucus 0 SEEN 07/17/19 03:50: WBC 5.7, RBC 4.21 L, Hgb 12.1 L, Hct 37.7 L, MCV 89.5, MCH 28.7, MCHC 32.1, RDW Std Deviation 45.8 H, RDW Coeff of Ernesto 14.0, Plt Count 260, MPV 9.8, Immature Gran % (Auto) 0.500, Neut % (Auto) 51.0, Lymph % (Auto) 32.4, Long % (Auto) 13.6 H, Eos % (Auto) 1.8, Baso % (Auto) 0.7, Absolute Neuts (auto) 2.9, Absolute Lymphs (auto) 1.84, Nucleated RBC % 0 07/17/19 03:50: Sodium 137, Potassium 4.0, Chloride 106, Carbon Dioxide 23.0, Anion Gap 8, BUN 37 H, Creatinine 1.84 H, Estim Creat Clear Calc 30.95, Est GFR (MDRD) Af Amer 46 L, Est GFR (MDRD) Non-Af 38 L, BUN/Creatinine Ratio 20.1 H, Glucose 101, Calcium 7.2 L, Total Bilirubin 0.30, AST 22, ALT 20, Alkaline Phosphatase 40 L, Total Protein 6.1 L, Albumin 3.1 L, Globulin 3.0, Albumin/Globulin Ratio 1.0 Current Medications Acetaminophen (Tylenol) 650 mg PO Q6H PRN PRN PRN Reason: Pain Score 1-10/Temp > 100.7 F Al Hydroxide/Mg Hydroxide (Mylanta Ii) 30 ml PO Q6H PRN PRN PRN Reason: Gastric Burning Albuterol Sulfate (Ventolin Aerosols) 2.5 mg INHALATION Q2H PRN PRN PRN Reason: dyspnea, wheezing Albuterol/Ipratropium (Duoneb) 3 ml INHALATION Q4HWA.RT [facility] Last Admin: 07/17/19 06:29 Dose: 3 ml Documented by: Aspirin (Ecotrin) 81 mg PO DAILY@0800 [facility] Atorvastatin Calcium (Lipitor) 20 mg PO QHS [facility] Enoxaparin Sodium (Lovenox) 40 mg SC DAILY [facility] Glucagon () 1 mg IM .X1 PRN PRN Reason: Hypoglycemia Guaifenesin (Robitussin) 20 ml PO Q4H PRN PRN PRN Reason: COUGH Hydralazine HCl (Apresoline Iv) 10 mg IV Q4H PRN PRN PRN Reason: SBP > 160 Sodium Chloride () 1,000 mls @ 125 mls/hr IV .Q8H [facility] Last Admin: 07/17/19 01:36 Dose: 125 mls/hr Documented by: Ceftriaxone Sodium (Rocephin) 1 gm in 50 mls @ 100 mls/hr IV Q24H [facility] Vancomycin IV Pharmacy to Dose (1 ea/ Sodium Chloride) 500 mls @ 250 mls/hr IV X1 PRN; Protocol PRN Reason: Rx to Dose Dextrose (Dextrose 10%-Water) 250 mls @ 999 mls/hr IV .Q16M PRN; Protocol PRN Reason: HYPOGLYCEMIA Sodium Chloride () 250 mls @ 15 mls/hr IV .[id number] PRN PRN Reason: Saline Flush Sodium Chloride () 250 mls @ 15 mls/hr IV .[id number] PRN PRN Reason: Additional IVPB Infusion Vancomycin HCl (Vancomycin) 1,000 mg in 200 mls @ 200 mls/hr IV Q24H [facility] Ibuprofen (Motrin) 800 mg PO TAKE HOME MED [facility] Last Admin: 07/16/19 20:26 Dose: 800 mg Documented by: Magnesium Hydroxide (Milk Of Magnesia) 30 ml PO DAILY PRN PRN PRN Reason: Constipation Melatonin (Melatonin) 3 mg PO QHS PRN PRN PRN Reason: INSOMNIA Morphine Sulfate () 2 mg IV Q3H PRN PRN PRN Reason: Pain Score 6-10/10 Non-Formulary Medication (Tadalafil [Cialis]) 5 mg PO DAILY [facility] Ondansetron HCl (Zofran) 4 mg IV Q8H PRN PRN PRN Reason: NAUSEA/VOMITING Oseltamivir Phosphate (Tamiflu) 30 mg PO BID [facility] Stop: 07/21/19 10:01 Last Admin: 07/17/19 01:36 Dose: 30 mg Documented by: Oxycodone HCl (Oxyir) 5 mg PO Q4H PRN PRN PRN Reason: Pain Score 4-5/10 Prochlorperazine Edisylate (Compazine Iv) 5 mg IV Q4H PRN PRN PRN Reason: Breakthrough Nausea/Vomiting Psyllium Hydrophilic Mucilloid (Metamucil) 1 packet PO DAILY PRN PRN PRN Reason: Constipation Senna/Docusate Sodium (Senokot-S, Jodie-Colace) 2 tablet PO BID PRN PRN PRN Reason: Constipation Sodium Chloride () 10 - 40 ml IV UD PRN PRN Reason: SALINE FLUSH Throat Lozenges (Cepacol Sore Throat Lozenge) 1 lozenge MUCOUS MEM Q2H PRN PRN PRN Reason: SORE THROAT STROKE Vital Signs/Narrative: Vital Signs Temp Pulse Pulse Pulse Pulse Resp BP 07/17/19 09:00 54 L 47 L 53 L 07/17/19 08:00 98.1 F 42 L 12 92/42 L 07/17/19 07:42 44 L 07/17/19 07:00 45 L 16 109/44 L 07/17/19 06:29 41 L 16 07/17/19 06:00 39 L 16 94/48 L BP BP BP Pulse Ox 07/17/19 09:00 99/49 L 103/53 L 97/51 L 07/17/19 08:00 98 07/17/19 07:42 07/17/19 07:00 98 07/17/19 06:29 96 07/17/19 06:00 95 Medical Necessity - Tobacco Use Smoking Status: Former smoker Tobacco Use: Non-smoker Assessment/Plan All Active Problems Sepsis (Acute) Sepsis associated hypotension (Acute) Acute viral syndrome (Acute) Diarrhea (Acute) Influenza A (Acute) 1. Sepsis secondary to influenza A/bradycardia/CKD 3 -Since there is an alternative diagnosis, no need for coronavirus testing -Obtain an echo to evaluate his bradycardia -Renal function is elevated to 1.84 Baseline creatinine is 1.5 -He has a history of renal cell carcinoma which led to a pancreatectomy and splenectomy, will continue with Rocephin and vancomycin until cultures are negative. I am concerned with his age that he would be at risk for C. difficile, a C. difficile test was sent and was negative therefore will de- escalate as soon as possible -He was started on Tamiflu, symptoms began 3 days ago 2. Metastatic renal cancer -He is status post penectomy therefore will be cautious and conservative -Continue with Rocephin and vancomycin until cultures are resolved 3. HTN/HLD -Given his soft blood pressures, will hold his medications -Continue with statin -Continue with gentle fluid hydration DVT: Lovenox Inpatient E&M: [id number] Subs Hosp L2
[2019-07-17] MEDS: 0.9% Normal Saline 1,000 ML 999 ML IV ×2 (09:52→14:11)
[2019-07-17] MEDS: Aspirin E.C. 81 MG Tablet PO (09:53)
[2019-07-17] MEDS: Enoxaparin 40 MG/0.4 ML Syringe SC (09:53)
--- NOTE | 2019-07-17 10:12 | CASEMGMT ---
RN CM Assessment Note Presentation: Viral Syndrome, Influenza A Intro role of CM and purpose of RN CM assessment to . Demographics, PCP and Pharmacy verified. states pt is independent at home, does not use DME and had no care needs prior to admission. RN CM explained if any discharge equipment or other needs or concerns arise, cm would be able to assist with dc planning needs. PCP: Dr. Bird Specialists: Dr. Salter, Egan golf cart attendant; Dr. Munoz, surgeon [facility] Preferred Pharmacy: [facility] Pharmacy Insurance: [facility]/[employer] Prescription Benefit: yes LNOK : , Radha Shah Living Arrangements: Lives in one story home with . No care needs prior to admission. Independent with ADL's. Transportation: and pt drive DME: none including ambulatory and oxygen. HHC: HHC in past after cancer surgery; does not know which agency. Patient DC goals: Home DC PLAN: anticipate home. PT/OT evals pending. Will continue to follow for any dc planning needs. Gera TELLO RN ACM
--- NOTE | 2019-07-17 15:23 | CHAPLAIN ---
Type of Pastoral Visit _x__ Initial Visit ___ Follow-up Visit ___ On-call Visit ___ General Patient Visit ___ Spiritual Assessment ___ Family Conference ___ Bereavement ___ Rapid Response ___ Code Blue ___ Other (describe below) Pastoral Care Referral From _x__ Patient ___ Family ___ Nurse ___ Physician ___ Fraud Analyst ___ Waxing Machine Operator Helper ___ Other (describe below) Sacrament/Intervention _x__ Active listening ___ Anointing ___ Druze ___ Bereavement ___ Communion _x__ Cady exploration ___ _x__ Life review _x__ Prayer ___ Reconciliation ___ Sacrament of Sick _x__ Supportive presence ___ Wedding ___ Other (describe below) Pastoral Comments
[2019-07-17] MEDS: Acetaminophen 325 MG Tablet 650 MG PO (16:19)
[2019-07-17] MEDS: Lactated Ringers 1,000 ML 999 ML IV (18:19)
[2019-07-17] MEDS: Atorvastatin Calcium 20 MG Tablet PO (20:40)
[2019-07-17] MEDS: Ibuprofen 400 MG Tablet 800 MG PO (20:40)
[2019-07-17] MEDS: Ceftriaxone 1 GM/50 ML BAG IV (20:40)
[2019-07-17] MEDS: Vancomycin IV 1,000 MG/200 ML BAG 200 MG IV (22:41)
[2019-07-17] MEDS: MELATONIN 3 MG TABLET PO (22:46)
[2019-07-18] VITALS (24 sets, daily range): BP systolic 92–152; BP diastolic 43–68; PULSE 43–76; RESP 13–18; TEMP 35.7–37.2; O2SAT 91–98
[2019-07-18] MEDS: 0.9% Normal Saline 1,000 ML 125 ML IV ×2 (04:00→11:42)
[2019-07-18 04:18] LABS: Anion Gap 10 (5-15); BUN 32 mg/dL (7-18); BUN/Creat Ratio 21.5 RATIO (10-20); Calcium,Total 6.8 mg/dL (8.5-10.1); Chloride 110 mmol/L (98-107); Creatinine, Serum 1.49 mg/dL (0.70-1.30); EST Glomerular Filtration Rate 48 mL/min (>60); Est Glom Filt Rate - Afr Amer 58 mL/min (>60); Estimated Creatinine Clearance 38.22 ml/min; Glucose 85 mg/dL (74-106); Potassium 3.6 mmol/L (3.5-5.1); Sodium Level 140 mmol/L (136-145)
[2019-07-18 05:09] LABS: Absolute Lymphocyte Count 1.92 X10^3/uL (0.83-4.51); Absolute Neutrophil Count 3.6 X10^3/uL (2.0-7.7); Basophil# 0.05 X10^3/uL; Basophil% 0.8 % (0-1); Eosinophil# 0.03 X10^3/uL; Eosinophils% 0.5 % (0-5); Hematocrit 33.1 % (40-54); Hemoglobin 10.7 g/dL (13.0-16.5); Lymphocyte # 1.92 X10^3/ul (4.0); Lymphocyte % 31.2 % (19-41); Mean Corp Hgb Conc 32.3 g/dL (32-36); Mean Corpuscular Hgb 29.2 pg (27.0-32.0); Mean Corpuscular Volume 90.4 fL (80-94); Mean Platelet Vol. 10.6 fl (6.2-12.0); Monocyte# 0.57 X10^3/uL; Monocyte% 9.3 % (0-10); NRBC Flagged by Analyzer 0 % (0-5); Neutrophil # 3.56 X10^3/uL (2.7-7.7); Neutrophil % 57.9 % (47-70); Platelet Count 220 K/mm3 (150-450); RBC Distribution Width CV 14.4 % (11.6-14.6); RBC Distribution Width SD 47.6 fl (35.1-43.9); Red Blood Count 3.66 M/mm3 (4.6-6.2); White Blood Count 6.2 K/mm3 (4.4-11.0)
[2019-07-18 05:11] LABS: POSITIVE COUNT NO; POSITIVE DIFFERENTIAL NO; POSITIVE MORPHOLOGY NO
[2019-07-18] MEDS: Ipratropium/Albuterol Sulfate 3 ML AMPUL.NEB INHALATION ×5 (07:17→22:58)
--- NOTE | 2019-07-18 07:30 | PCM.PN.INT ---
Subjective: Patient did okay overnight. Patient reports subjective improvement in overall condition. Only a mild fever noted overnight. Patient's blood pressures have remained marginal and he did have some bradycardia with sleep, but no interventions were required. General: Alert, Oriented x3, Cooperative, No apparent distress, Well developed, Well nourished, - - No conversational dyspnea HEENT: Atraumatic, PERRLA, EOMI, Normocephalic, - - No scleral icterus or injection noted Oral: Moist Mucosa, No Gingival or Mucosal Lesions/ Ulcerations Neck: Supple, No JVD, No Nodes, Trachea Midline Lungs: No rhonchi, No rales, Diminished, Wheezes - Sporadic, - - Symmetric expansion. No dullness to percussion. Cardiovascular: Regular Rhythm, Normal S1, Normal S2, No murmurs, Bradycardic, No rub noted, No Gallop Abdomen: Bowel Sounds Present, Soft, Non Tender, Non-Distended Extremities: No clubbing, No cyanosis, No edema, Capillary Refill Less than 3 Seconds Skin: No rashes, No breakdown Musculoskeletal: No Tenderness to Palpation of Joints or Extremities Lymphatic: No Cervical, Supraclavicular, or Inguinal Adenopathy Neurological: Cranial nerves II-XII grossly intact, Neuro grossly intact, Motor Exam 5/5 strength throughout Psych/Mental Status: Alert and oriented to time, place, person, mood and affect Vital Signs Temp Pulse Resp BP Pulse Ox 36.3 C L 43 L 16 94/43 L 91 07/18/19 04:00 07/18/19 06:00 07/18/19 06:00 07/18/19 06:00 07/18/19 06:00 Oxygen Flow Rate (L/min) 2 Oxygen Delivery Method Room Air Weight: 91.8 kg Body Mass Index (BMI) 28.3 Orthostatic Vital Signs Start: 07/17/19 09:08 Freq: q24h Status: Active Protocol: Activity Type Activity Date Activity User E-Sign Co-Sign Detail Recorded Client Recorded Date Recorded By Document 07/17/19 09:00 MICAH [id number] 07/17/19 09:12 MICAH 07/17/19 09:00 Orthostatic Vitals Standing -Blood Pressure (90/60-120/80) 97/51 L -Extremity Use Right Arm -Pulse Rate (60-100) 53 L Sitting -Blood Pressure (90/60-120/80) 103/53 L -Extremity Use Right Arm -Pulse Rate (60-100) 47 L Lying -Blood Pressure (90/60-120/80) 99/49 L -Extremity Use Right Arm -Pulse Rate (60-100) 54 L Intake and Output for Last 24 Hours 07/16/19 07/17/19 07/18/19 23:59 23:59 23:59 Intake Total 1072.5 / 1072.5 7645.0 / 7645.0 1060 / 1060 Balance 1072.5 / 1072.5 7645.0 / 7645.0 1060 / 1060 Labs (Last 48 Hours) 07/16/19 07/16/19 07/16/19 20:20 20:20 20:20 WBC 7.6 RBC 4.46 L Hgb 13.0 Hct 38.9 L MCV 87.2 MCH 29.1 MCHC 33.4 RDW Std Deviation 44.2 H RDW Coeff of Ernesto 13.7 Plt Count 291 MPV 10.0 Immature Gran % (Auto) 0.500 Neut % (Auto) 77.5 H Lymph % (Auto) 9.1 L [place] % (Auto) 11.9 H Eos % (Auto) 0.1 Baso % (Auto) 0.9 Absolute Neuts (auto) 5.9 Absolute Lymphs (auto) 0.69 L Nucleated RBC % 0 PT 14.5 INR 1.2 APTT 28.1 Sodium 134 L Potassium 4.0 Chloride 100 Carbon Dioxide 25.0 Anion Gap 9 BUN 34 H Creatinine 1.72 H Estim Creat Clear Calc 33.11 Est GFR (MDRD) Af Amer 49 L Est GFR (MDRD) Non-Af 41 L BUN/Creatinine Ratio 19.8 Glucose 104 Lactic Acid Calcium 8.3 L Magnesium Total Bilirubin 0.50 AST 21 ALT 22 Alkaline Phosphatase 44 L Troponin I < 0.015 Total Protein 6.9 Albumin 3.6 Globulin 3.3 Albumin/Globulin Ratio 1.1 Urine Color Urine Clarity Urine pH Ur Specific [place] Urine Protein Urine Glucose (UA) Urine Ketones Urine Occult Blood Urine Nitrite Urine Bilirubin Urine Urobilinogen Ur Leukocyte Esterase Urine RBC Urine WBC Ur Squamous Epith Cells Urine Bacteria Urine Mucus 07/16/19 07/16/19 07/16/19 20:20 20:20 21:50 WBC RBC Hgb Hct MCV MCH MCHC RDW Std Deviation RDW Coeff of Ernesto Plt Count MPV Immature Gran % (Auto) Neut % (Auto) Lymph % (Auto) [place] % (Auto) Eos % (Auto) Baso % (Auto) Absolute Neuts (auto) Absolute Lymphs (auto) Nucleated RBC % PT INR APTT Sodium Potassium Chloride Carbon Dioxide Anion Gap BUN Creatinine Estim Creat Clear Calc Est GFR (MDRD) Af Amer Est GFR (MDRD) Non-Af BUN/Creatinine Ratio Glucose Lactic Acid 0.9 Calcium Magnesium 1.5 L Total Bilirubin AST ALT Alkaline Phosphatase Troponin I Total Protein Albumin Globulin Albumin/Globulin Ratio Urine Color Yellow Urine Clarity Sl. Cloudy Urine pH 5.0 Ur Specific [place] 1.020 Urine Protein 15 H Urine Glucose (UA) Normal Urine Ketones Negative Urine Occult Blood 10 H Urine Nitrite Negative Urine Bilirubin Negative Urine Urobilinogen Normal Ur Leukocyte Esterase 25 H Urine RBC 0 SEEN Urine WBC 0-5 SEEN Ur Squamous Epith Cells 0 SEEN Urine Bacteria 0 SEEN Urine Mucus 0 SEEN 07/17/19 07/17/19 07/18/19 03:50 03:50 04:00 WBC 5.7 6.2 RBC 4.21 L 3.66 L Hgb 12.1 L 10.7 L Hct 37.7 L 33.1 L MCV 89.5 90.4 MCH 28.7 29.2 MCHC 32.1 32.3 RDW Std Deviation 45.8 H 47.6 H RDW Coeff of Ernesto 14.0 14.4 Plt Count 260 220 MPV 9.8 10.6 Immature Gran % (Auto) 0.500 0.300 Neut % (Auto) 51.0 57.9 Lymph % (Auto) 32.4 31.2 [place] % (Auto) 13.6 H 9.3 Eos % (Auto) 1.8 0.5 Baso % (Auto) 0.7 0.8 Absolute Neuts (auto) 2.9 3.6 Absolute Lymphs (auto) 1.84 1.92 Nucleated RBC % 0 0 PT INR APTT Sodium 137 Potassium 4.0 Chloride 106 Carbon Dioxide 23.0 Anion Gap 8 BUN 37 H Creatinine 1.84 H Estim Creat Clear Calc 30.95 Est GFR (MDRD) Af Amer 46 L Est GFR (MDRD) Non-Af 38 L BUN/Creatinine Ratio 20.1 H Glucose 101 Lactic Acid Calcium 7.2 L Magnesium Total Bilirubin 0.30 AST 22 ALT 20 Alkaline Phosphatase 40 L Troponin I Total Protein 6.1 L Albumin 3.1 L Globulin 3.0 Albumin/Globulin Ratio 1.0 Urine Color Urine Clarity Urine pH Ur Specific [place] Urine Protein Urine Glucose (UA) Urine Ketones Urine Occult Blood Urine Nitrite Urine Bilirubin Urine Urobilinogen Ur Leukocyte Esterase Urine RBC Urine WBC Ur Squamous Epith Cells Urine Bacteria Urine Mucus 07/18/19 04:00 WBC RBC Hgb Hct MCV MCH MCHC RDW Std Deviation RDW Coeff of Ernesto Plt Count MPV Immature Gran % (Auto) Neut % (Auto) Lymph % (Auto) [place] % (Auto) Eos % (Auto) Baso % (Auto) Absolute Neuts (auto) Absolute Lymphs (auto) Nucleated RBC % PT INR APTT Sodium 140 Potassium 3.6 Chloride 110 H Carbon Dioxide 20.0 L Anion Gap 10 BUN 32 H Creatinine 1.49 H Estim Creat Clear Calc 38.22 Est GFR (MDRD) Af Amer 58 L Est GFR (MDRD) Non-Af 48 L BUN/Creatinine Ratio 21.5 H Glucose 85 Lactic Acid Calcium 6.8 L Magnesium Total Bilirubin AST ALT Alkaline Phosphatase Troponin I Total Protein Albumin Globulin Albumin/Globulin Ratio Urine Color Urine Clarity Urine pH Ur Specific [place] Urine Protein Urine Glucose (UA) Urine Ketones Urine Occult Blood Urine Nitrite Urine Bilirubin Urine Urobilinogen Ur Leukocyte Esterase Urine RBC Urine WBC Ur Squamous Epith Cells Urine Bacteria Urine Mucus Microbiology 07/16/19 23:28 Urine, Clean Catch Urine Culture - Preliminary Culture exhibits no growth. 07/16/19 23:28 Stool Enteric Bacteriology - Final 07/16/19 21:40 Mucosa - Nasopharyngeal Respiratory Panel (PCR) - Final Influenza A (Subtype H1) 07/16/19 23:28 Stool C. difficile DNA Amplification - Final 07/16/19 20:45 Mucosa - Nose Influenza Types A,B Direct FA (FUAD) - Final Medical Necessity - Tobacco Use Smoking Status: Former smoker Tobacco Use: Non-smoker Assessment/Plan All Active Problems Sepsis (Acute) Sepsis associated hypotension (Acute) Acute viral syndrome (Acute) Diarrhea (Acute) Influenza A (Acute) RECOMMENDATIONS: 1. Agree with empiric antibiotics until culture negative given hypotension 2. Complete Tamiflu for 5 days 3. Check orthostatic blood pressures 4. Increase activity as tolerated 5. Okay to transfer from the intensive care unit from my perspective IMPRESSIONS: 1. Acute sepsis secondary to influenza A Patient would be at risk for COVID 19 given recent volleyball tournaments, but influenza A can also lead to this presentation. Some concern for the bradycardia and relative hypotension. Patient has been monitored over the last 24 hours and has had no secondary effects of hypotension. Renal function continues to improve despite lower blood pressures. This would suggest that these pressures are adequate for now. Okay to leave the intensive care unit from my perspective. Orthostatics are negative, so patient should be able to ambulate as tolerated. 2. History of metastatic renal CA/chronic kidney disease stage III Patient's creatinine appears to be back to its baseline at this time. No alteration in antibiotic dosing is indicated by GFR, but pharmacy will follow. Low clinical suspicion for pulmonary embolism. Slight elevation in creatinine may have been secondary to volume depletion. 3. Hypertension/hyperlipidemia/advanced age Complicates care, management, recovery and prognosis. Hold antihypertensive medications for now. Okay to give baseline statin regimen. Inpatient E&M: [id number] [facility] Hosp L3
[2019-07-18] MEDS: Oseltamivir Phosphate 30 MG Capsule PO ×2 (09:28→21:32)
[2019-07-18] MEDS: Aspirin E.C. 81 MG Tablet PO (09:28)
[2019-07-18] MEDS: Enoxaparin 40 MG/0.4 ML Syringe SC (09:28)
--- NOTE | 2019-07-18 09:58 | PCM.PN.HOSP ---
Patient Problems: Active and Suspected Problems Sepsis (Acute) Sepsis associated hypotension (Acute) Acute viral syndrome (Acute) Diarrhea (Acute) Influenza A (Acute) Subjective: Doing well, feels little better. No issues overnight. He did have some low blood pressures while he was sleeping however today on my exam his maps were in the 70s Vitals/I&O's: Vital Signs Temp Pulse Resp BP Pulse Ox 98 F 68 18 117/59 L 94 07/18/19 08:00 07/18/19 09:00 07/18/19 09:00 07/18/19 09:00 07/18/19 09:00 Oxygen Flow Rate (L/min) 2 Oxygen Delivery Method Room Air Weight: 202 lb 6.15 oz Body Mass Index (BMI) 28.3 Intake and Output for Last 24 Hours 07/16/19 07/17/19 07/18/19 23:59 23:59 23:59 Intake Total 1072.5 / 1072.5 7645.0 / 7645.0 1060 / 1060 Balance 1072.5 / 1072.5 7645.0 / 7645.0 1060 / 1060 General: Alert, Oriented x3, Cooperative, No apparent distress HEENT: Atraumatic, PERRLA, EOMI, Normocephalic Oral: Dry Mucosa Neck: Supple, No JVD Lungs: Normal air movement, No rhonchi, No rales, Wheezes Cardiovascular: Regular Rhythm, Normal S1, Normal S2, No murmurs, - - Bradycardic Abdomen: Soft, Non Tender, Non-Distended, No Hepato-splenomegaly Extremities: No edema, Capillary Refill Less than 3 Seconds Skin: No rashes, No breakdown Neurological: Neuro grossly intact, Sensory exam intact to light touch and pain Psych/Mental Status: Normal Affect, Appropriate Microbiology Past 72 Hours 07/16/19 23:28 Urine, Clean Catch Urine Culture - Preliminary Culture exhibits no growth. 07/16/19 23:28 Stool Enteric Bacteriology - Final 07/16/19 21:40 Mucosa - Nasopharyngeal Respiratory Panel (PCR) - Final Influenza A (Subtype H1) 07/16/19 23:28 Stool C. difficile DNA Amplification - Final 07/16/19 20:45 Mucosa - Nose Influenza Types A,B Direct FA (FUAD) - Final Laboratory Results 07/18/19 04:00: WBC 6.2, RBC 3.66 L, Hgb 10.7 L, Hct 33.1 L, MCV 90.4, MCH 29.2, MCHC 32.3, RDW Std Deviation 47.6 H, RDW Coeff of Ernesto 14.4, Plt Count 220, MPV 10.6, Immature Gran % (Auto) 0.300, Neut % (Auto) 57.9, Lymph % (Auto) 31.2, [place] % (Auto) 9.3, Eos % (Auto) 0.5, Baso % (Auto) 0.8, Absolute Neuts (auto) 3.6, Absolute Lymphs (auto) 1.92, Nucleated RBC % 0 07/18/19 04:00: Sodium 140, Potassium 3.6, Chloride 110 H, Carbon Dioxide 20.0 L, Anion Gap 10, BUN 32 H, Creatinine 1.49 H, Estim Creat Clear Calc 38.22, Est GFR (MDRD) Af Amer 58 L, Est GFR (MDRD) Non-Af 48 L, BUN/Creatinine Ratio 21.5 H, Glucose 85, Calcium 6.8 L Current Medications Acetaminophen (Tylenol) 650 mg PO Q6H PRN PRN PRN Reason: Pain Score 1-10/Temp > 100.7 F Last Admin: 07/17/19 16:19 Dose: 650 mg Documented by: Al Hydroxide/Mg Hydroxide (Mylanta Ii) 30 ml PO Q6H PRN PRN PRN Reason: Gastric Burning Albuterol Sulfate (Ventolin Aerosols) 2.5 mg INHALATION Q2H PRN PRN PRN Reason: dyspnea, wheezing Albuterol/Ipratropium (Duoneb) 3 ml INHALATION Q4HWA.RT [facility] Last Admin: 07/18/19 07:17 Dose: 3 ml Documented by: Aspirin (Ecotrin) 81 mg PO DAILY@0800 [facility] Last Admin: 07/18/19 09:28 Dose: 81 mg Documented by: Atorvastatin Calcium (Lipitor) 20 mg PO QHS [facility] Last Admin: 07/17/19 20:40 Dose: 20 mg Documented by: Enoxaparin Sodium (Lovenox) 40 mg SC DAILY [facility] Last Admin: 07/18/19 09:28 Dose: 40 mg Documented by: Glucagon () 1 mg IM .X1 PRN PRN Reason: Hypoglycemia Guaifenesin (Robitussin) 20 ml PO Q4H PRN PRN PRN Reason: COUGH Hydralazine HCl (Apresoline Iv) 10 mg IV Q4H PRN PRN PRN Reason: SBP > 160 Sodium Chloride () 1,000 mls @ 125 mls/hr IV .Q8H [facility] Last Admin: 07/18/19 04:00 Dose: 125 mls/hr Documented by: Ceftriaxone Sodium (Rocephin) 1 gm in 50 mls @ 100 mls/hr IV Q24H [facility] Last Infusion: 07/17/19 21:10 Dose: Infused Documented by: Dextrose (Dextrose 10%-Water) 250 mls @ 999 mls/hr IV .Q16M PRN; Protocol PRN Reason: HYPOGLYCEMIA Sodium Chloride () 250 mls @ 15 mls/hr IV .[id number] PRN PRN Reason: Saline Flush Sodium Chloride () 250 mls @ 15 mls/hr IV .[id number] PRN PRN Reason: Additional IVPB Infusion Magnesium Hydroxide (Milk Of Magnesia) 30 ml PO DAILY PRN PRN PRN Reason: Constipation Melatonin (Melatonin) 3 mg PO QHS PRN PRN PRN Reason: INSOMNIA Last Admin: 07/17/19 22:46 Dose: 3 mg Documented by: Morphine Sulfate () 2 mg IV Q3H PRN PRN PRN Reason: Pain Score 6-10/10 Ondansetron HCl (Zofran) 4 mg IV Q8H PRN PRN PRN Reason: NAUSEA/VOMITING Oseltamivir Phosphate (Tamiflu) 30 mg PO BID [facility] Stop: 07/21/19 10:01 Last Admin: 07/18/19 09:28 Dose: 30 mg Documented by: Oxycodone HCl (Oxyir) 5 mg PO Q4H PRN PRN PRN Reason: Pain Score 4-5/10 Prochlorperazine Edisylate (Compazine Iv) 5 mg IV Q4H PRN PRN PRN Reason: Breakthrough Nausea/Vomiting Psyllium Hydrophilic Mucilloid (Metamucil) 1 packet PO DAILY PRN PRN PRN Reason: Constipation Senna/Docusate Sodium (Senokot-S, Jodie-Colace) 2 tablet PO BID PRN PRN PRN Reason: Constipation Sodium Chloride () 10 - 40 ml IV UD PRN PRN Reason: SALINE FLUSH Throat Lozenges (Cepacol Sore Throat Lozenge) 1 lozenge MUCOUS MEM Q2H PRN PRN PRN Reason: SORE THROAT STROKE Vital Signs/Narrative: Vital Signs Temp Pulse Resp BP Pulse Ox 07/18/19 09:00 68 18 117/59 L 94 07/18/19 08:00 98 F 55 L 17 121/48 H 92 07/18/19 07:20 44 L 07/18/19 07:17 50 L 18 97 07/18/19 07:00 47 L 17 121/45 H 96 07/18/19 06:00 43 L 16 94/43 L 91 Medical Necessity - Tobacco Use Smoking Status: Former smoker Tobacco Use: Non-smoker Assessment/Plan All Active Problems Sepsis (Acute) Sepsis associated hypotension (Acute) Acute viral syndrome (Acute) Diarrhea (Acute) Influenza A (Acute) 1. Sepsis secondary to influenza A/bradycardia/CKD 3 -Since there is an alternative diagnosis, no need for coronavirus testing -Echo with normal EF and stage II diastolic dysfunction with pulmonary artery systolic pressure of 35 mmHg -Renal function is elevated to 1.84 and now 1.49, Baseline creatinine is 1.5 -Blood culture should come back negative tomorrow which point can discontinue Rocephin -He was started on Tamiflu, symptoms began 3 days prior to admission 2. Metastatic renal cancer -He is status post penectomy therefore will be cautious and conservative -Continue with Rocephin and vancomycin until cultures are resolved 3. HTN/HLD -Given his soft blood pressures, will hold his medications -Continue with statin -Continue with gentle fluid hydration DVT: Lovenox Inpatient E&M: [id number] Subs Hosp L2
[2019-07-18] MEDS: Ceftriaxone 1 GM/50 ML BAG IV (21:30)
[2019-07-18] MEDS: Atorvastatin Calcium 20 MG Tablet PO (21:31)
[2019-07-18] MEDS: 0.9% Saline Lock 10 ML Syringe IV (21:31)
[2019-07-18] MEDS: Acetaminophen 325 MG Tablet 650 MG PO (22:42)
[2019-07-19 00:15] VITALS: BP 124/60; PULSE 86; RESP 16; TEMP 37.1; O2SAT 94
[2019-07-19 03:00] VITALS: PULSE 87
[2019-07-19 04:00] VITALS: BP 122/58; PULSE 66; RESP 16; TEMP 37.2; O2SAT 94
[2019-07-19 06:51] VITALS: PULSE 60
[2019-07-19 07:00] VITALS: PULSE 64; RESP 18; O2SAT 96
[2019-07-19] MEDS: Ipratropium/Albuterol Sulfate 3 ML AMPUL.NEB INHALATION (07:00)
[2019-07-19 07:19] LABS: Anion Gap 8 (5-15); BUN 20 mg/dL (7-18); Calcium,Total 7.6 mg/dL (8.5-10.1); Chloride 113 mmol/L (98-107); Creatinine, Serum 1.25 mg/dL (0.70-1.30); EST Glomerular Filtration Rate 59 mL/min (>60); Est Glom Filt Rate - Afr Amer 71 mL/min (>60); Estimated Creatinine Clearance 45.56 ml/min; Glucose 104 mg/dL (74-106); Potassium 3.2 mmol/L (3.5-5.1); Sodium Level 142 mmol/L (136-145)
--- NOTE | 2019-07-19 07:19 | PCM.PN.INT ---
Subjective: Patient transferred out of the intensive care unit yesterday. Patient states that he has been doing okay. Patient still having some diarrhea and nausea. Patient is reporting a decreased appetite also. That being said, patient has been hemodynamically stable on room air and reports that he can walk to the bathroom without difficulty. General: Alert, Oriented x3, Cooperative, No apparent distress, Well developed, Well nourished, - - Glasses in place. HEENT: Atraumatic, PERRLA, EOMI, Normocephalic, - - No scleral icterus or injection noted Oral: Moist Mucosa, No Gingival or Mucosal Lesions/ Ulcerations Neck: Supple, No JVD, No Nodes, Trachea Midline Lungs: Clear to auscultation, Normal air movement, No rhonchi, No wheeze, No rales, - - Symmetric expansion. No dullness to percussion. Cardiovascular: Regular rate, Regular Rhythm, Normal S1, Normal S2, No murmurs, No rub noted, No Gallop Abdomen: Bowel Sounds Present, Soft, Non Tender, Non-Distended Extremities: No clubbing, No cyanosis, No edema, Capillary Refill Less than 3 Seconds Skin: No rashes, No breakdown Musculoskeletal: No Tenderness to Palpation of Joints or Extremities Lymphatic: No Cervical, Supraclavicular, or Inguinal Adenopathy Neurological: Cranial nerves II-XII grossly intact, Neuro grossly intact, Motor Exam 5/5 strength throughout Psych/Mental Status: Alert and oriented to time, place, person, mood and affect Vital Signs Temp Pulse Resp BP Pulse Ox 37.2 C 66 16 122/58 H 94 07/19/19 04:00 07/19/19 04:00 07/19/19 04:00 07/19/19 04:00 07/19/19 04:00 Oxygen Flow Rate (L/min) 2 Oxygen Delivery Method Room Air Weight: 91.6 kg Body Mass Index (BMI) 28.3 Intake and Output for Last 24 Hours 07/17/19 07/18/19 07/19/19 23:59 23:59 23:59 Intake Total 7645.0 / 7645.0 3229.58 / 3229.58 120 / 120 Balance 7645.0 / 7645.0 3229.58 / 3229.58 120 / 120 Labs (Last 48 Hours) 07/18/19 07/18/1907/18/20 04:00 04:00 06:45 WBC 6.2 RBC 3.66 L Hgb 10.7 L Hct 33.1 L MCV 90.4 MCH 29.2 MCHC 32.3 RDW Std Deviation 47.6 H RDW Coeff of Ernesto 14.4 Plt Count 220 MPV 10.6 Immature Gran % (Auto) 0.300 Neut % (Auto) 57.9 Lymph % (Auto) 31.2 [place] % (Auto) 9.3 Eos % (Auto) 0.5 Baso % (Auto) 0.8 Absolute Neuts (auto) 3.6 Absolute Lymphs (auto) 1.92 Nucleated RBC % 0 Sodium 140 Pending Potassium 3.6 Pending Chloride 110 H Pending Carbon Dioxide 20.0 L Pending Anion Gap 10 Pending BUN 32 H Pending Creatinine 1.49 H Pending Estim Creat Clear Calc 38.22 Est GFR (MDRD) Af Amer 58 L Pending Est GFR (MDRD) Non-Af 48 L Pending BUN/Creatinine Ratio 21.5 H Pending Glucose 85 Pending Calcium 6.8 L Pending Microbiology 07/16/19 23:28 Urine, Clean Catch Urine Culture - Preliminary Culture exhibits no growth. 07/16/19 23:28 Stool Enteric Bacteriology - Final 07/16/19 21:40 Mucosa - Nasopharyngeal Respiratory Panel (PCR) - Final Influenza A (Subtype H1) Medical Necessity - Tobacco Use Smoking Status: Former smoker Tobacco Use: Non-smoker Assessment/Plan All Active Problems Sepsis (Acute) Sepsis associated hypotension (Acute) Acute viral syndrome (Acute) Diarrhea (Acute) Influenza A (Acute) RECOMMENDATIONS: 1. Okay to discontinue antibiotics from my perspective 2. Complete Tamiflu for 5 days 3. Okay to discharge from a pulmonary perspective 4. We will sign off from a critical care perspective 5. No outpatient follow-up with pulmonary likely indicated IMPRESSIONS: 1. Acute sepsis secondary to influenza A Patient would be at risk for COVID 19 given recent volleyball tournaments, but influenza A can also lead to this presentation. Patient appears to be back to his baseline from a respiratory status. Blood pressure and heart rate have been much better over the last 24 hours. Will sign off from a critical care perspective. Patient does not have any underlying reported lung disease, so pulmonary follow-up as an outpatient is likely not indicated. 2. History of metastatic renal CA/chronic kidney disease stage III Patient's creatinine appears to be back to its baseline at this time. No alteration in antibiotic dosing is indicated by GFR, but pharmacy will follow. Low clinical suspicion for pulmonary embolism. Renal function back to normal. Consider p.o. supplementation of potassium. Hypokalemia likely secondary to GI losses. 3. Hypertension/hyperlipidemia/advanced age Complicates care, management, recovery and prognosis. Hold antihypertensive medications for now. Okay to give baseline statin regimen. Inpatient E&M: [id number] Subs Hosp L2
--- NOTE | 2019-07-19 08:32 | DCINST_ITS ---
- Discharge Diagnoses Current Active Problems: Current Active and Chronic Problems Sepsis (Acute) Sepsis associated hypotension (Acute) Acute viral syndrome (Acute) HTN (hypertension) (Chronic) HLD (hyperlipidemia) (Chronic) Former tobacco use (Chronic) History of kidney cancer (Chronic) Diarrhea (Acute) Influenza A (Acute) You will use the following diet at home:: Regular Your food should be the consistency of: Regular Your liquids should be the consistency of: Regular/Thin Discharge Activity: Return to Normal Activity Call your doctor if you observe: Fever of 101 or Higher, Shortness of breath, Dizziness, Fainting spells, Swelling in the ankles, Chest pain, Increased palpitations (irregular heartbeat) Additional Instructions: Do not take your blood pressure medications for 24-48 hours Allergies/Adverse Reactions: Allergies Iodinated Contrast Media [CONTRASTS] Allergy (Verified 07/16/19 19:29) Rash Medications to take at Discharge Aspirin E.C. [Ecotrin] 81 mg PO DAILY@0800 07/16/19 FA/Vit C/E/Zinc/Copper/Lut/Li [Ocuvel Capsule] 1 ea PO DAILY 07/16/19 Lysine [l-Lysine] 500 mg PO DAILY 07/16/19 Nebivolol HCl [Bystolic (Beta Miky)] 20 mg PO DAILY 07/16/19 Olmesartan/Hydrochlorothiazide [Benicar Hct 20-12.5 MG Tab] 2 tab PO DAILY 07/16/19 Rosuvastatin Calcium [Crestor] 10 mg PO QHS 07/16/19 Tadalafil [Cialis] 5 mg PO DAILY 07/16/19 Oseltamivir Phosphate [Tamiflu] 30 mg PO BID #10 cap 07/19/19 The following prescriptions were given: Oseltamivir Phosphate [Tamiflu] 30 mg PO BID #10 cap Transmission Status: Pending to [facility] Primary Care Physician: Ran Bird MD [Primary Care Provider] - Please follow up with your Primary Care Physician in: 3-5 days Test Results: Test results from this visit will be discussed in further detail at your follow- up appointment, if applicable.
[2019-07-19] MEDS: Aspirin E.C. 81 MG Tablet PO (09:31)
[2019-07-19] MEDS: Oseltamivir Phosphate 30 MG Capsule PO (09:31)
[2019-07-19 09:38] VITALS: BP 143/64; PULSE 65; RESP 18; TEMP 36.6; O2SAT 94
--- NOTE | 2019-07-19 10:47 | DS.PCM_ITS ---
Discharge Date and Diagnosis Date of Admission: 07/16/19 Date of Discharge: 07/19/19 - Secondary Discharge Diagnosis Chronic Problems HTN (hypertension) (Chronic) HLD (hyperlipidemia) (Chronic) Former tobacco use (Chronic) History of kidney cancer (Chronic) Hospital Course and Treatment Imaging Results: CXR: IMPRESSION: No active disease. Elevated right hemidiaphragm. Echo: Interpretation Summary Normal LV size. Left ventricular systolic function is normal. The estimated ejection fraction is 65 %. Stage 2 diastolic dysfunction. The left atrium is mildly enlarged. Pulmonary artery systolic pressure is 35 mmHg. Consults: Pulmonology Operations: None Procedures: 2-D Echocardiogram Summary of Care Provided: Per HPI: The patient is a 84 y/o M w/ PMHx: Hx Metastatic Renal CA s/p partial pancreatomy/bowel resection/L nephrectomy/splenectomy, HTN, HLD, CKD stage III (baseline 1.3-1.5) who presents to the [facility] ED on 07/16/19 with history of 3 days of worsening mild dry cough, dyspnea, worse with exertion with onset fever x 24 hours with myalgia with no headache, congestion or rhinorrhea prompting ED presentation with noted recent anorexia with poor oral intake with loose stools and mild abdominal cramping starting on day of ED presentation concurrently. Patient denies any recent travel and no specific exposure to COVID-19 patient.; however, patient and who is present and has mask in place note that they were both recently at several volleyball tournaments in the region including [employer], [employer] and [employer]. Work-up in the ED included T 102.9, heart rate 69, BP 152/59, respiratory rate 19, 94% on room air, CBC with WC 7.6, hemoglobin 13, platelet 291 without significant left shift, unremarkable coags, CMP with sodium 134, BUN/creatinine 34/1.72, lactic acid 0.9, troponin less than 0.015, chest x-ray with no acute cardiopulmonary findings with only noted elevated right hemidiaphragm, blood culture x2 pending per ED, negative rapid influenza panel. In the ED patient ministered normal saline, Tylenol, ibuprofen. Pending respiratory viral panel per ED physician. Given asplenic status per discussion with ED physician and low BPs, planned administration rocephin, vanc and continued BP monitoring and if improved planned PCU transition but if worsening hypotension would transition to the ICU. Hospital Course: 1. Sepsis secondary to influenza A/bradycardia/CKD [age]-qn[age]-old male with history of metastatic renal cancer status post partial pancreatectomy, nephrectomy and splenectomy presents with worsening cough dyspnea and an onset of a fever with myalgias. He tested positive for influenza A and was started on Tamiflu. Initially his creatinine was 1.84 and it has improved to 1.25 on the day of discharge. His potassium was 3.2 and that was replaced as well on the day of discharge and he will need to follow-up with his PCP in 3 to 5 days. From a respiratory standpoint he is doing very well and no longer needs any oxygen. His blood pressures were a little bit low on his have been his home blood pressure medications were held on admission was given some IV fluids. He is now back into the 130s to 140s systolic and therefore can likely restart his blood pressure medications in 24 to 48 hours. As a precaution he was started on broad-spectrum antibiotics pending results of blood cultures which have been negative for 48 hours therefore these were discontinued and he was cleared for discharge home today. I did discuss plan of discharge with him today and he expressed understanding of the risks and benefits and was still like to proceed with discharge. 2. His other medical diagnoses were evaluated and his home medications were continued where appropriate - Physical Exam Vitals/I&O's: Vital Signs Temp Pulse Resp BP Pulse Ox 97.8 F 65 18 143/64 H 94 07/19/19 09:38 07/19/19 09:38 07/19/19 09:38 07/19/19 09:38 07/19/19 09:38 Oxygen Flow Rate (L/min) 2 Oxygen Delivery Method Room Air Weight: 201 lb 15.095 oz Body Mass Index (BMI) 28.3 Intake and Output for Last 24 Hours 07/17/19 07/18/19 07/19/19 23:59 23:59 23:59 Intake Total 7645.0 / 7645.0 3229.58 / 3229.58 120 / 120 Balance 7645.0 / 7645.0 3229.58 / 3229.58 120 / 120 General: Alert, Oriented x3, Cooperative, No apparent distress HEENT: Atraumatic, PERRLA, EOMI, Normocephalic Oral: Dry Mucosa Neck: Supple, No JVD Lungs: Normal air movement, No rhonchi, No rales, Wheezes Cardiovascular: Regular rate and rhythm, Normal S1, Normal S2, No murmurs Abdomen: Soft, Non Tender, Non-Distended, No Hepato-splenomegaly Extremities: No edema, Capillary Refill Less than 3 Seconds Skin: No rashes, No breakdown Neurological: Neuro grossly intact, Sensory exam intact to light touch and pain Psych/Mental Status: Normal Affect, Appropriate Microbiology Past 72 Hours 07/16/19 23:28 Urine, Clean Catch Urine Culture - Final Culture exhibits no growth. 07/16/19 20:20 Blood Culture (Wb) - Right Hand Blood Culture - Preliminary No growth in 48 hours. 07/16/19 20:20 Blood Culture (Wb) - Left Forearm Blood Culture - Preliminary No growth in 48 hours. 07/16/19 23:28 Stool Enteric Bacteriology - Final 07/16/19 21:40 Mucosa - Nasopharyngeal Respiratory Panel (PCR) - Final Influenza A (Subtype H1) 07/16/19 23:28 Stool C. difficile DNA Amplification - Final 07/16/19 20:45 Mucosa - Nose Influenza Types A,B Direct FA (FUAD) - Final Laboratory Results 07/19/19 06:45: Sodium 142, Potassium 3.2 L, Chloride 113 H, Carbon Dioxide 21.0, Anion Gap 8, BUN 20 H, Creatinine 1.25, Estim Creat Clear Calc 45.56, Est GFR (MDRD) Af Amer 71, Est GFR (MDRD) Non-Af 59 L, BUN/Creatinine Ratio 16.0, Glucose 104, Calcium 7.6 L Discharge Activity: Return to Normal Activity Call your doctor if you observe: Fever of 101 or Higher, Shortness of breath, Dizziness, Fainting spells, Swelling in the ankles, Chest pain, Increased palpitations (irregular heartbeat) Home Medications: Medications to take at Discharge Aspirin E.C. [Ecotrin] 81 mg PO DAILY@0800 07/16/19 FA/Vit C/E/Zinc/Copper/Lut/Li [Ocuvel Capsule] 1 ea PO DAILY 07/16/19 Lysine [l-Lysine] 500 mg PO DAILY 07/16/19 Nebivolol HCl [Bystolic (Beta Miky)] 20 mg PO DAILY 07/16/19 Olmesartan/Hydrochlorothiazide [Benicar Hct 20-12.5 MG Tab] 2 tab PO DAILY 07/16/19 Rosuvastatin Calcium [Crestor] 10 mg PO QHS 07/16/19 Tadalafil [Cialis] 5 mg PO DAILY 07/16/19 Oseltamivir Phosphate [Tamiflu] 30 mg PO BID #10 cap 07/19/19 Following Prescrptions Were Given to Patient: Oseltamivir Phosphate [Tamiflu] 30 mg PO BID #10 cap Transmission Status: Received by [facility] Primary Care Physician: Ran Bird MD [Primary Care Provider] - Please follow up with your Primary Care Physician in: 3-5 days Disposition: Home Minutes spent on discharge:: 35 Patient Condition:: Stable Medical Necessity - Tobacco Use Smoking Status: Former smoker Tobacco Use: Non-smoker Meaningful Use Info Meaningful Use Diagnoses (Choose all that apply): None applicable Inpatient E&M: 46599 Disch Hosp
== END 2019-07-19 10:26 | disposition home or self-care (01) | DRG 872 ==
LOC: ED 23:44 → ICU 07-17 00:05 → PCU 07-18 13:27
PROVIDERS: Internal Medicine Critical Care Medicine; Admitting Provider Family Medicine; Emergency Provider Emergency Medicine; PCP Family Medicine; Visit Provider Family Medicine
DX: A41.89 Other specified sepsis (principal); N18.3 Chronic kidney disease, stage 3 (moderate); J10.1 Influenza due to other identified influenza virus with other respiratory manifestations; I12.9 Hypertensive chronic kidney disease with stage 1 through stage 4 chronic kidney disease, or unspecified chronic kidney disease; E87.6 Hypokalemia; E78.5 Hyperlipidemia, unspecified; R00.1 Bradycardia, unspecified; Z90.81 Acquired absence of spleen; Z90.49 Acquired absence of other specified parts of digestive tract; Z90.5 Acquired absence of kidney; Z90.411 Acquired partial absence of pancreas; Z85.528 Personal history of other malignant neoplasm of kidney; Z87.891 Personal history of nicotine dependence
CPT/HCPCS: 36415; 71045; 80048; 80053; 81001; 83605; 83735; 84484; 85025; 85610; 85730; 87040; 87086; 87493; 87506; 87633; 87804; 93306; 94640; 97162; 97166; 99251; 99284; J7030; J7040; J7050; J7120; Q9957; A4216; C8929; G0463